=== PATIENT | female | born 1955 | race Caucasian/White ===

== ENCOUNTER 2018-10-30 12:36 | Outpatient (CLI) | payer OTHER ==
--- NOTE | 2018-10-30 14:44 | RAD ---
RIGHT HIP 2 VIEWS: HISTORY: Hip pain. FINDINGS: Tiny spur formation along the femoral head and neck unction is seen without any significant joint spa ce narrowing. 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 POS: [facility]
--- NOTE | 2018-10-30 14:47 | RAD ---
LEFT KNEE TWO VIEWS: HISTORY: Knee pain. FINDINGS: The joint spaces are preserved and symmetric. Minimal degenerative change. No joint effusion. No f racture. IMPRESSION: Unremarkable left knee. POS: [facility]
--- NOTE | 2018-10-30 14:48 | RAD ---
LEFT SHOULDER FOUR VIEWS: HISTORY: Shoulder pain. FINDINGS: No fracture or dislocation. AC joint is normally aligned. IMPRESSION: No acute abnormality. POS: [facility]
== END 2018-10-30 12:37 | disposition home or self-care (01) ==
LOC: NAV RAD 12:36
PROVIDERS: ATTEND Nurse Practitioner Family
DX: M25.551 Pain in right hip (principal); M25.512 Pain in left shoulder; M25.562 Pain in left knee; M16.11 Unilateral primary osteoarthritis, right hip; M25.862 Other specified joint disorders, left knee

== ENCOUNTER 2019-06-03 20:41 | Emergency (ER) | payer OTHER ==
--- NOTE | 2019-06-03 21:14 | RAD ---
RADIOGRAPH LEFT foot 3VIEWS: DATE: 06/03/2019 HISTORY: 63-year-old female status post acute left foot trauma. FINDINGS: There is no dislocation. No fracture is identified. IMPRESSION: No fracture.
[2019-06-03] MEDS ORDERED: Triple Antibiotic Oint 1 GM Packet ONE (21:22)
[2019-06-03] MEDS ORDERED: Adacel (T-DAP) 0.5 ML SYRINGE ONE (21:24)
== END 2019-06-03 21:30 | disposition home or self-care (01) ==
LOC: NAV ERS 20:41
DX: S91.201A Unspecified open wound of right great toe with damage to nail, initial encounter (principal); S80.219A Abrasion, unspecified knee, initial encounter; E03.9 Hypothyroidism, unspecified; F17.210 Nicotine dependence, cigarettes, uncomplicated; Z79.899 Other long term (current) drug therapy; W22.8XXA Striking against or struck by other objects, initial encounter
CPT/HCPCS: 11750; 90715

== ENCOUNTER 2019-09-16 14:25 | Emergency (ER) | payer OTHER ==
[2019-09-16 15:33] LABS: #Basophils 0.1 thou/uL (0.0-0.2); #Eosinphils 0.1 thou/uL (0.0-0.7); #Lymphocytes 1.6 thou/uL (1.20-3.40); #Monocytes 0.3 thou/uL (0.11-0.59); #Neutrophils 6.7 thou/uL (1.40-6.50); %Basophils 0.8 % (0.0-1.0); %Lymphocytes 18.7 % (21.0-51.0); %Monocytes 3.2 % (0.0-10.0); %Neutrophils 76.3 % (42.0-75.0); Hemoglobin 13.4 g/dL (12.0-16.0); Mean Corpuscular HGB CONC 32.6 g/dL (32.0-36.0); Mean Platelet Volume 7.1 fL (7.4-10.4); Platelet Count 260 thou/uL (130-400); Red Blood Cell (RBC) Count 4.48 mill/uL (4.20-5.40); White Blood Cell (WBC) Count 8.8 thou/uL (4.8-10.8)
[2019-09-16 15:42] LABS: Bilirubin Negative (Negative); Blood, Urine Trace (Negative); Clarity Clear (Clear); Glucose, Urine (Dipstick) Negative (Negative); Leukocyte Negative (Negative); Nitrite Negative (Negative); Protein, Urine (Dipstick) Negative (Neg-Trace); Urobilinogen 0.2 mg/dL (Less than 2)
--- NOTE | 2019-09-16 15:46 | RAD ---
EXAM: 2 views of the right hip HISTORY: Right hip pain COMPARISON: None FINDINGS: 2 views of the right hip shows no evidence of acute fracture or dislocation. No degenerativ e changes are seen. No soft tissue swelling is present. IMPRESSION: No evidence of acute osseous abnormality.
[2019-09-16 15:51] LABS: RBC/HPF 0-3 HPF (0-3); Squamous Epithelial 0-3 HPF (0-3)
[2019-09-16 15:54] LABS: ALT (SGPT) 21 U/L (8-55); AST (SGOT) 15 U/L (5-34); Albumin 4.3 g/dL (3.4-4.8); Alkaline Phosphatase 60 U/L (40-110); Anion Gap 15 mmol/L (10-20); BUN (Urea Nitrogen) 20 mg/dL (9.8-20.1); Bilirubin, Total 0.4 mg/dL (0.2-1.2); CK (CPK) 71 U/L (29-168); CRP (Inflammatory) Less than 0.50 mg/dL (= or < 0.5); Calc. Creatinine Clearance 0 mL/min (70-130); Calcium 9.2 mg/dL (7.8-10.44); Carbon Dioxide 23 mmol/L (23-31); Chloride 105 mmol/L (98-107); Estimated GFR-MDRD 52; Globulin 2.3 g/dL (2.4-3.5); Glucose 104 mg/dL (80-115); Potassium 4.1 mmol/L (3.5-5.1); Protein, Total 6.6 g/dL (6.0-8.3); Sodium 139 mmol/L (136-145)
--- NOTE | 2019-09-16 15:57 | RAD ---
EXAM: 4 views of the right knee HISTORY: Knee pain COMPARISON: None FINDINGS: A small knee effusion is seen. There is no evidence of acute fracture or dislocation. No si gnificant degenerative changes are seen. No soft tissue swelling is present. IMPRESSION: No evidence of acute osseous abnormality.
--- NOTE | 2019-09-16 16:20 | CT ---
EXAM: CT of the lumbar spine without contrast HISTORY: Low back pain radiating to the foot for 3 months COMPARISON: None TECHNIQUE: Multiple contiguous axial images were obtained in a CT of the lumbar spine without contras t. Sagittal and coronal reformats were performed. FINDINGS: There is narrowing of the T11/12 intervertebral disc with surrounding osteophytes. Vacuum p henomenon is seen within the L3/4 intervertebral disc. The lumbar vertebral bodies and intervertebral discs demonstrate normal height and alignment without fracture or subluxation. . There appear to be a moderate-sized posterior disc bulges from L2/3 through L5/S1 which cause moderate central canal stenosis and moderate bilateral neural foraminal stenosis at these levels. Atherosclerotic calcifications are seen in the aorta.. The other prevertebral and paraspinal soft t issues are unremarkable. IMPRESSION: Disc bulges throughout the lumbar spine as above. These are incompletely evaluated on CT and MRI would be a better exam for further evaluation.
== END 2019-09-16 17:03 | disposition home or self-care (01) ==
LOC: NAV ERS 14:25
DX: M51.36 Other intervertebral disc degeneration, lumbar region (principal); M25.461 Effusion, right knee; I10 Essential (primary) hypertension; E03.9 Hypothyroidism, unspecified; F17.210 Nicotine dependence, cigarettes, uncomplicated; Z79.899 Other long term (current) drug therapy
CPT/HCPCS: 72131; 80053; 81003; 81015; 82550; 85025; 85379; 86140

== ENCOUNTER 2020-10-24 12:31 | Emergency (ER) | payer OTHER ==
--- NOTE | 2020-10-24 13:48 | RAD ---
Exam: Chest one view HISTORY:Chest pain. Comparison: None FINDINGS: Cardiac silhouette: Normal Aorta: Atherosclerosis Pulmonary vessels: Normal Costophrenic angles: Clear LUNGS: No masses or consolidation. Pneumothorax: None Osseous abnormalities: None IMPRESSION: No acute cardiopulmonary process.
[2020-10-24 13:50] LABS: #Basophils 0.1 thou/uL (0.0-0.2); #Eosinphils 0.1 thou/uL (0.0-0.7); #Lymphocytes 1.9 thou/uL (1.20-3.40); #Monocytes 0.4 thou/uL (0.11-0.59); #Neutrophils 6.4 thou/uL (1.40-6.50); %Basophils 0.6 % (0.0-1.0); %Eosinophils 0.9 % (0.0-10.0); %Lymphocytes 21.9 % (21.0-51.0); %Monocytes 4.6 % (0.0-10.0); %Neutrophils 72.1 % (42.0-75.0); Hemoglobin 14.5 g/dL (12.0-16.0); Mean Corpuscular HGB CONC 32.6 g/dL (32.0-36.0); Mean Corpuscular Hemoglobin 31.5 pg (27.0-31.0); Mean Corpuscular Volume 96.7 fL (78.0-98.0); Mean Platelet Volume 6.8 fL (7.4-10.4); Platelet Count 273 thou/uL (130-400); RBC Distribution Width 12.1 % (11.5-14.5); Red Blood Cell (RBC) Count 4.59 mill/uL (4.20-5.40); White Blood Cell (WBC) Count 8.8 thou/uL (4.8-10.8)
[2020-10-24 14:05] LABS: ALT (SGPT) 16 U/L (8-55); AST (SGOT) 13 U/L (5-34); Albumin 4.5 g/dL (3.4-4.8); Alkaline Phosphatase 66 U/L (40-110); Anion Gap 15 mmol/L (10-20); BUN (Urea Nitrogen) 21 mg/dL (9.8-20.1); Bilirubin, Total 0.5 mg/dL (0.2-1.2); Calc. Creatinine Clearance 0 mL/min (70-130); Calcium 9.7 mg/dL (7.8-10.44); Carbon Dioxide 25 mmol/L (23-31); Chloride 103 mmol/L (98-107); Globulin 2.5 g/dL (2.4-3.5); Glucose 96 mg/dL (80-115); Potassium 3.6 mmol/L (3.5-5.1); Sodium 139 mmol/L (136-145)
[2020-10-24] MEDS ORDERED: Aspirin Chewable 81 MG TAB ONE (14:23)
[2020-10-24] MEDS ORDERED: Sodium Chloride 0.9% 1,000 ML ONE (15:49)
[2020-10-24 17:11] LABS: Troponin I Less than 0.010 ng/mL (< 0.028)
== END 2020-10-24 17:46 | disposition home or self-care (01) ==
LOC: NAV ERS 12:31
DX: I95.1 Orthostatic hypotension (principal); R07.89 Other chest pain; I10 Essential (primary) hypertension; E03.9 Hypothyroidism, unspecified; F17.210 Nicotine dependence, cigarettes, uncomplicated; Z79.899 Other long term (current) drug therapy
CPT/HCPCS: 36415; 71045; 80053; 84484; 85025; 85379; 93005; J7050